=== PATIENT | female | born 1970 | race Caucasian/White ===

== ENCOUNTER 2020-05-14 14:54 | Emergency (ER) | payer OTHER ==
[~2020-05-14] VITALS: Ht 147.3 cm; Wt 49.9 kg
[2020-05-14] MEDS ORDERED: AMLODIPINE-OLM1 EACH (15:32)
== END 2020-05-15 01:49 | disposition home or self-care (01) ==
LOC: ER 14:54
DX: M62.830 Muscle spasm of back (principal); R10.32 Left lower quadrant pain; M54.5 Low back pain